=== PATIENT | male | born 1970 | race Caucasian/White ===

== ENCOUNTER 2023-11-25 12:37 | Inpatient (IN) | payer OTHER ==
[2023-11-25 14:08] VITALS: BMI 25.6
[2023-11-25] MEDS ORDERED: POLYETHYLENE GLYCOL (HEALTHYLAX) 3350 17 GM PACKET PO PRN (14:24)
[2023-11-25] MEDS ORDERED: NALOXONE (NARCAN) HCL 4 MG/0.1 ML SPRAY NS PRN (14:24)
[2023-11-25] MEDS ORDERED: ONDANSETRON *ODT* 4 MG TABLET SL PRN (14:24)
[2023-11-25] MEDS ORDERED: chlordiazePOXIDE HCL 25 MG CAPSULE PO PRN (14:24)
[2023-11-25] MEDS ORDERED: DICYCLOMINE HCL 10 MG CAPSULE PO PRN (14:24)
[2023-11-25] MEDS ORDERED: guaiFENesin 600 MG TABLET.ER (FP) PO PRN (14:24)
[2023-11-25] MEDS ORDERED: IBUPROFEN 400 MG TABLET (FP) PO PRN (14:24)
[2023-11-25] MEDS ORDERED: MAG HYDROX/AL HYDROX/SIMETH 30 ML UNIT-DOSE CUP PO PRN (14:24)
[2023-11-25] MEDS ORDERED: BISMUTH SUBSALICYLATE 524 MG/30 ML PO PRN (14:24)
[2023-11-25] MEDS ORDERED: MAGNESIUM HYDROX 2400MG/30ML ORAL SUSPENSION 30 ML CUP PO PRN (14:24)
[2023-11-25] MEDS ORDERED: BENZONATATE 200 MG CAPSULE PO PRN (14:24)
[2023-11-25] MEDS ORDERED: BENZOCAINE/MENTHOL (CHLORASEPTIC ) LOZENGE MM PRN (14:24)
[2023-11-25] MEDS ORDERED: LOPERAMIDE HCL 2 MG CAPSULE PO PRN (14:24)
[2023-11-25] MEDS ORDERED: NALOXONE HCL 0.4 MG/ML VIAL IM PRN (14:24)
[2023-11-25] MEDS ORDERED: PRENATAL VITAMINS W/ FOLIC ACID TABLET (FP) PO ONE (16:31)
[2023-11-25] MEDS ORDERED: chlordiazePOXIDE HCL 25 MG CAPSULE ONE (16:31)
[2023-11-25] MEDS: PRENATAL VITAMINS W/ FOLIC ACID TABLET (FP) PO SCH (16:37)
[2023-11-25] MEDS: chlordiazePOXIDE HCL 25 MG CAPSULE PO SCH (16:38)
[2023-11-25] MEDS: metFORMIN HCL 500 MG TABLET (FP) PO SCH (17:47)
[2023-11-25] MEDS ORDERED: metFORMIN HCL 500 MG TABLET (FP) PO SCH (22:00)
[2023-11-25] MEDS: THIAMINE 100 MG TABLET PO SCH (22:34)
[2023-11-25] MEDS: MELATONIN 5 MG TABLETS PO SCH (22:37)
[2023-11-25] MEDS: buPROPion HCL 75 MG TABLET PO SCH (22:55)
[2023-11-26] MEDS: glipiZIDE 5 MG TABLET (FP) PO SCH (06:01)
[2023-11-26 10:32] LABS: CHLORIDE 100 mmol/L (98-107); HEMATOCRIT 41.4 % (35.4-49); HEMOGLOBIN 13.8 GM/dL (11.7-16.9); MCH 32.9 pg (25.7-33.7); MCHC 33.4 g/dl (32.0-35.9); MEAN CELL VOLUME 98.7 fl (80-96); MEAN PLT VOLUME 9.1 fl (7.5-11.1); PLATELET COUNT 179 10^3/uL (134-434); RDW 12.6 % (11.9-15.9); SODIUM 137 mmol/L (136-145); WHITE BLOOD COUNT 7.8 K/mm3 (4.0-10.0)
[2023-11-26 10:54] LABS: CALCIUM 9.5 mg/dL (8.5-10.1)
[2023-11-26 10:55] LABS: ANION GAP 8 mmol/L (4-13); BLOOD UREA NITROGEN 6.7 mg/dL (7-18); CO2 29 mmol/L (21-32); GLUCOSE,RANDOM 219 mg/dL (74-106)
[2023-11-26 10:58] LABS: CREATININE 0.7 mg/dL (0.55-1.3); SGOT/AST 81 U/L (15-37); SGPT/ALT 83 U/L (13-61)
[2023-11-26 11:00] LABS: BILIRUBIN,TOTAL 1.1 mg/dL (0.2-1)
[2023-11-26 11:01] LABS: ALK PHOS 237 U/L (45-117); TOT PROT 7.2 g/dl (6.4-8.2)
[2023-11-26] MEDS: ACETAMINOPHEN 325 MG TABLET (FP) PO PRN (12:30)
[2023-11-26] MEDS: METHOCARBAMOL 500 MG TABLET PO PRN (22:48)
[2023-11-27] MEDS: chlordiazePOXIDE HCL 25 MG CAPSULE PO SCH (05:40)
[2023-11-27] MEDS: INSULIN ASPART SLIDING SCALE (NOVOLOG) 1 VIAL SQ SCH (07:42)
[2023-11-27] MEDS: hydrOXYzine PAMOATE 25 MG CAPSULE (FP) PO PRN (10:05)
[2023-11-27] MEDS ORDERED: INSULIN (NOVOLOG) ASPART 100 UNITS/ML 10ML VIAL ONE (16:45)
[2023-11-27] MEDS: amLODIPine BESYLATE 5 MG TABLET (FP) PO SCH (17:59)
[2023-11-28] MEDS ORDERED: chlordiazePOXIDE HCL 10 MG CAPSULE PO PRN
[2023-11-28] MEDS: chlordiazePOXIDE HCL 10 MG CAPSULE PO SCH (05:43)
[2023-11-28] MEDS: IBUPROFEN 600 MG TABLET (FP) PO PRN (12:53)
[2023-11-28] MEDS ORDERED: INSULIN (NOVOLOG) ASPART 100 UNITS/ML 10ML VIAL ONE (16:43)
[2023-11-29] MEDS: chlordiazePOXIDE HCL 10 MG CAPSULE PO SCH (05:40)
[2023-11-29 08:44] VITALS: BP 127/85; PULSE 73; RESP 18; TEMP 97.8
[2023-11-30] MEDS ORDERED: chlordiazePOXIDE HCL 10 MG CAPSULE PO ONE (05:00)
== END 2023-11-29 10:51 | disposition home or self-care (01) | DRG 775 ==
LOC: YASAS 12:37 → Y6N 16:29
PROVIDERS: ADMIT Allergy & Immunology; ATTEND Surgery
PROC: HZ2ZZZZ Detoxification Services for Substance Abuse Treatment (ICD-10-PCS; principal; 2023-11-25)
DX: F10.230 Alcohol dependence with withdrawal, uncomplicated (principal); F19.24 Other psychoactive substance dependence with psychoactive substance-induced mood disorder; F32.A Depression, unspecified; I10 Essential (primary) hypertension; E11.9 Type 2 diabetes mellitus without complications; Z79.84 Long term (current) use of oral hypoglycemic drugs; Z56.0 Unemployment, unspecified; Z59.02 Unsheltered homelessness; Z87.891 Personal history of nicotine dependence
CPT/HCPCS: 36415; 80053; 80305; 80307; 82962; 83036; 85027; 86780; 93005; 93010